=== PATIENT | male | born 1970 | race Caucasian/White ===

== ENCOUNTER 2020-09-08 11:48 | Emergency (ER) | payer OTHER ==
[~2020-09-08] VITALS: Ht 175.3 cm; Wt 68.0 kg
[2020-09-08 12:09] LABS: BASOPHILS ABSOLUTE AUTO 0.05 K/mm3 (0.00-0.23); BASOPHILS PERCENT AUTO 1 % (0-2); EOSINOPHILS ABSOLUTE AUTO 0.14 K/mm3 (0.00-0.68); EOSINOPHILS PERCENT AUTO 2 % (0-6); Hemoglobin 15.6 g/dL (13.5-17.5); IMMATURE GRAN ABSOLUTE AUTO 0.03 K/mm3 (0.00-0.10); IMMATURE GRAN PERCENT AUTO 0 % (0-1); LYMPHOCYTES PERCENT AUTO 32 % (21-46); MONOCYTES ABSOLUTE AUTO 0.49 K/mm3 (0.16-1.47); MONOCYTES PERCENT AUTO 7 % (4-13); Mean Corpuscular HGB 33.4 pg (26.0-34.0); Mean Corpuscular HGB Conc 35.5 g/dL (31.5-36.5); Mean Corpuscular Volume 94 fL (80-100); Mean Platelet Volume 9.8 fL (9.1-12.4); NEUTROPHILS ABSOLUTE AUTO 4.16 K/mm3 (1.96-9.15); NEUTROPHILS PERCENT AUTO 58 % (41-73); Platelet Count 209 K/mm3 (150-400); RDW Coefficient Variation 11.7 % (11.7-14.2); RDW Standard Deviation 40.5 fL (35.1-46.3); Red Blood Cell Count 4.67 M/mm3 (4.30-5.90); White Blood Cell Count 7.17 K/mm3 (4.00-11.30)
[2020-09-08 12:25] LABS: Anion Gap 6 mmol/L (6-16); Blood Urea Nitrogen 7 mg/dL (8-24); Bun/Creatinine Ratio 8.1 (12.0-20.0); CO2, Blood 25 mmol/L (21-32); Calcium, Blood 8.8 mg/dL (8.5-10.1); Chloride, Blood 107 mmol/L (98-108); Creatinine, Blood 0.86 mg/dL (0.60-1.20); Glomerular Filtration Rate >60 (60-); Glucose, Blood 84 mg/dL (70-99); Sodium, Blood 138 mmol/L (136-145); Troponin I <0.015 ng/mL (0.000-0.040)
== END 2020-09-08 15:30 | disposition home or self-care (01) ==
LOC: ER 11:48
PROVIDERS: Student in an Organized Health Care Education/Training Program
DX: R07.9 Chest pain, unspecified (principal); R06.02 Shortness of breath; F17.210 Nicotine dependence, cigarettes, uncomplicated
CPT/HCPCS: 71275; 80048; 84484; 85025; 93005; 93010; 99285-25; Q9967

== ENCOUNTER → 2020-10-04 | Outpatient (CLI) | payer OTHER | LOC: LAB 09:21 → LAB SHORT 09:21 | DX: L03.90 Cellulitis, unspecified (principal) | CPT/HCPCS: 87070; 87075; 87077; 87147; 87186; 87205 ==

== ENCOUNTER 2020-10-31 11:40 | Day surgery (SDC) | payer OTHER ==
[~2020-10-31] VITALS: Ht 175.3 cm; Wt 67.3 kg
[~2020-10-31 11:40] MED LIST: CENTRUM SILVER1 EAC2 PO; Chantix1 MG PO
--- NOTE | 2020-10-31 13:16 | NUR ---
10/31/20 1316 Seth Garza History, Chart, Medications and Allergies reviewed before start of procedure. Patient confirms NPO status and agrees with scheduled surgery. 3-LEAD EKG REVIEWED WITH PHYSICIAN PRIOR TO START OF PROCEDURE. MONITOR INTACT WITH CONTINUOUS PULSE OXIMETRY AND INTERMITTENT BP. PATIENT DETERMINED TO BE ASA APPROPRIATE FOR PROPOFOL SEDATION PRIOR TO START OF PROCEDURE BY DR. CARDENAS.
--- NOTE | 2020-10-31 14:14 | NUR ---
Discharge instructions reviewed with patient. Patient verbalizes understanding. Copy given to patient to take home. Patient States Post-Procedure ride home has been arranged. Discharged via wheelchair to private car for ride home.
== END 2020-10-31 13:45 | disposition home or self-care (01) ==
LOC: ORSCMMR 11:40 → ORD 13:00 → ORSCMMR 13:00
PROVIDERS: Surgery
PROC: 0DJD8ZZ Inspection of Lower Intestinal Tract, Via Natural or Artificial Opening Endoscopic (ICD-10-PCS; principal; 2020-10-31 13:00)
DX: K62.5 Hemorrhage of anus and rectum (principal); K64.8 Other hemorrhoids; F41.8 Other specified anxiety disorders; F17.210 Nicotine dependence, cigarettes, uncomplicated
CPT/HCPCS: J2704; J7120

== ENCOUNTER → 2021-11-12 | Outpatient (CLI) | payer OTHER ==
[2021-11-23 17:07] LABS: COTININE <10.0 ng/mL (.); NICOTINE <10.0 ng/mL (.)
== END | disposition home or self-care (01) ==
LOC: LAB 10:00 → LAB SHORT 10:00
PROVIDERS: Family Medicine
DX: F17.201 Nicotine dependence, unspecified, in remission (principal)
CPT/HCPCS: G0480

== ENCOUNTER → 2021-11-20 | Outpatient (CLI) | payer OTHER ==
[2021-11-30 09:07] LABS: COTININE <10.0 ng/mL (.); NICOTINE <10.0 ng/mL (.)
== END | disposition home or self-care (01) ==
LOC: LAB 09:59 → LAB SHORT 09:59
PROVIDERS: Family Medicine
DX: F17.201 Nicotine dependence, unspecified, in remission (principal)
CPT/HCPCS: G0480

== ENCOUNTER 2022-07-15 03:28 | Day surgery (SDC) | payer OTHER ==
[~2022-07-15 03:28] MED LIST changes: +AMLODIPINE BESY10 MG PO; +ASPI81CH PO; +ATOR80 PO; +Betamethasone V15 GM TP; +METO25ER PO; +NITR.4SL SL; +Prozac40 MG PO; +TICA90TA PO
[2022-07-15 08:00] VITALS: BP 164/86
[2022-07-15 09:45] VITALS: BP 153/90
== END 2022-07-15 10:32 | disposition home or self-care (01) ==
LOC: ATC 03:28
DX: L40.59 Other psoriatic arthropathy (principal); L40.0 Psoriasis vulgaris; I25.10 Atherosclerotic heart disease of native coronary artery without angina pectoris; I10 Essential (primary) hypertension; E78.5 Hyperlipidemia, unspecified; Z79.82 Long term (current) use of aspirin; Z79.899 Other long term (current) drug therapy
CPT/HCPCS: 96375; 96413; 96415; A9270; J1200; J2920; J7050; Q5103

== ENCOUNTER 2022-08-27 01:01 | Day surgery (SDC) | payer OTHER ==
[2022-08-27 07:45] VITALS: BP 151/102
[2022-08-27 08:28] VITALS: BP 150/92
== END 2022-08-27 10:15 | disposition home or self-care (01) ==
LOC: ATC 01:01
DX: L40.59 Other psoriatic arthropathy (principal); I10 Essential (primary) hypertension; E78.5 Hyperlipidemia, unspecified; I25.10 Atherosclerotic heart disease of native coronary artery without angina pectoris; Z79.82 Long term (current) use of aspirin; Z79.899 Other long term (current) drug therapy
CPT/HCPCS: 96375; 96413; 96415; A9270; J1200; J2920; J7050; Q5103

== ENCOUNTER 2024-05-03 06:25 | Day surgery (SDC) | payer OTHER ==
[2024-05-01 07:52] VITALS: BP 141/93
[2024-05-01 07:59] LABS: BASOPHILS ABSOLUTE AUTO 0.05 K/mm3 (0.00-0.23); BASOPHILS PERCENT AUTO 2 % (0-2); EOSINOPHILS ABSOLUTE AUTO 0.08 K/mm3 (0.00-0.68); EOSINOPHILS PERCENT AUTO 2 % (0-6); Hematocrit 42.9 % (37.0-53.0); IMMATURE GRAN ABSOLUTE AUTO 0.01 K/mm3 (0.00-0.10); IMMATURE GRAN PERCENT AUTO 0 % (0-1); LYMPHOCYTES ABSOLUTE AUTO 0.96 K/mm3 (0.84-5.20); LYMPHOCYTES PERCENT AUTO 28 % (21-46); MONOCYTES PERCENT AUTO 15 % (4-13); Mean Corpuscular HGB 31.3 pg (26.0-34.0); Mean Corpuscular Volume 89 fL (80-100); Mean Platelet Volume 9.9 fL (9.1-12.4); NEUTROPHILS PERCENT AUTO 53 % (41-73); Platelet Count 185 K/mm3 (150-400); RDW Coefficient Variation 12.3 % (11.7-14.2); RDW Standard Deviation 39.9 fL (35.1-46.3)
[2024-05-01 08:00] VITALS: BP 140/94
[2024-05-01 08:12] LABS: Calcium, Blood 9.3 mg/dL (8.5-10.1); Potassium, Blood 3.7 mmol/L (3.5-5.5)
[2024-05-01 08:26] LABS: International Normalized Ratio 1.01; Prothrombin Time Results 10.8 Sec (9.7-11.5)
--- NOTE | 2024-05-01 08:31 | NUR ---
PT IV DC'D. CATH INTACT PRESSURE DSG APPLIED. PT CORONARY ANGIOGRAM CANCELLED DUE TO DR MARINELLI BEING SICK. THE OFFICE WILL CONTACT PATIENT TO RESCHEDULE.
[2024-05-03] VITALS (10 sets, daily range): BP systolic 111–151; BP diastolic 79–122
[~2024-05-03] VITALS: Ht 175.3 cm; Wt 75.0 kg
[~2024-05-03 06:25] MED LIST changes: +ALBU90OI INH; +CLOP75 PO; +ESCI10 PO; +Heparin Sodium 1000 Units/ML 10ML MDV ONE; +LEFL20 PO; +NS 0 ML IV ONE; +Nitroglycerin 2 MG/20 ML BTL ONE; +Verapamil HCL 2.5 MG/ML 2ML Injection ONE
[2024-05-03] MEDS ORDERED: Heparin Sodium 1000 Units/ML 10ML MDV ONE (06:38)
[2024-05-03] MEDS ORDERED: NS 250 ML IV ONE (06:38)
[2024-05-03] MEDS ORDERED: NS 1,000 ML IV ONE ×2 (06:38→07:04)
[2024-05-03] MEDS ORDERED: Verapamil HCL 2.5 MG/ML 2ML Injection ONE (06:38)
[2024-05-03] MEDS ORDERED: Nitroglycerin 2 MG/20 ML BTL ONE (06:39)
[2024-05-03] MEDS ORDERED: Midazolam HCl 1MG / ML 2ML Vial ONE (07:03)
[2024-05-03] MEDS ORDERED: FentaNYL Citrate 50 MCG/ML 2 ML Injection ONE (07:03)
--- NOTE | 2024-05-03 10:30 | NUR ---
PT AND S/O VERBALIZES UNDERSTANDING WRITTEN AND VERBAL INSTRUCTIONS. DENIES QUESITONS OR CONCERNS. PT IV DC'D. CATH INTACT. PRESSURE DSG APPLIED. PT DRESSES SELF WITHOUT DIFF. PT TR BAND REMOVED. CLOTH DOT WITH SPLINT AND SLING IN PLACE. NO BLEEDING OR HEMATOMA NOTED. VSS. PT DC TO HOME VIA S/O BY ADELITA
== END 2024-05-03 10:30 | disposition home or self-care (01) ==
LOC: MHTC 06:25 → ORSCMMR 06:26 → MHTC 06:48
PROVIDERS: Student in an Organized Health Care Education/Training Program
DX: I25.118 Atherosclerotic heart disease of native coronary artery with other forms of angina pectoris (principal); E78.5 Hyperlipidemia, unspecified; I10 Essential (primary) hypertension; Z79.899 Other long term (current) drug therapy
CPT/HCPCS: 76937; 80048; 85025; 85610; 93458; 99152; C1769; C1887; C1894; J1644; J2250; J3010; J7030; J7050; Q9967

== ENCOUNTER → 2024-09-13 | Outpatient (CLI) | payer OTHER ==
[~2024-09-13] MED LIST changes: -Heparin Sodium 1000 Units/ML 10ML MDV ONE; -NS 0 ML IV ONE; -Nitroglycerin 2 MG/20 ML BTL ONE; -Verapamil HCL 2.5 MG/ML 2ML Injection ONE
[2024-09-13 18:16] LABS: Ferritin, Serum 58.0 ng/mL (26-388); Total Iron Binding Capacity 338.0 ug/dL (250-450)
== END | disposition home or self-care (01) ==
LOC: LAB 13:25 → LAB SHORT 13:25
PROVIDERS: Internal Medicine Hematology & Oncology
DX: E61.1 Iron deficiency (principal)
CPT/HCPCS: 82728; 83540; 83550

== ENCOUNTER 2024-12-29 09:59 | Emergency (ER) | payer OTHER ==
[~2024-12-29] VITALS: Ht 175.3 cm; Wt 74.4 kg
[2024-12-29] MEDS ORDERED: ABAT250V INH (10:27)
[2024-12-29 10:42] LABS: BASOPHILS ABSOLUTE AUTO 0.06 K/mm3 (0.00-0.23); BASOPHILS PERCENT AUTO 1 % (0-2); EOSINOPHILS ABSOLUTE AUTO 0.09 K/mm3 (0.00-0.68); EOSINOPHILS PERCENT AUTO 2 % (0-6); Hematocrit 41.8 % (37.0-53.0); Hemoglobin 14.1 g/dL (13.5-17.5); IMMATURE GRAN ABSOLUTE AUTO 0.01 K/mm3 (0.00-0.10); IMMATURE GRAN PERCENT AUTO 0 % (0-1); LYMPHOCYTES ABSOLUTE AUTO 0.85 K/mm3 (0.84-5.20); LYMPHOCYTES PERCENT AUTO 16 % (21-46); MONOCYTES ABSOLUTE AUTO 0.35 K/mm3 (0.16-1.47); MONOCYTES PERCENT AUTO 7 % (4-13); Mean Corpuscular HGB Conc 33.7 g/dL (31.5-36.5); Mean Corpuscular Volume 92 fL (80-100); NEUTROPHILS ABSOLUTE AUTO 3.86 K/mm3 (1.96-9.15); NEUTROPHILS PERCENT AUTO 74 % (41-73); NRBC ABSOLUTE 0.00 K/mm3 (0.00-0.02); NRBC Auto 0.0 /100 WBC (0.0-0.2); Platelet Count 178 K/mm3 (150-400); RDW Coefficient Variation 12.2 % (11.7-14.2); RDW Standard Deviation 41.9 fL (35.1-46.3)
[2024-12-29 11:02] LABS: Alanine Aminotransfer (ALT/SGP 27.0 U/L (12-78); Albumin, Blood 4.0 g/dL (3.4-5.0); Albumin/Globulin Ratio 1.3 (0.8-1.8); Anion Gap 13.0 mmol/L (3-11); Aspartate Aminotrans (AST/SGOT 20.0 U/L (12-37); Bilirubin, Total 0.4 mg/dL (0.1-1.0); Blood Urea Nitrogen 11.0 mg/dL (8-24); CO2, Blood 23.0 mmol/L (21-32); Calcium, Blood 9.1 mg/dL (8.5-10.1); Chloride, Blood 105.0 mmol/L (98-108); Creatinine, Blood 0.9 mg/dL (0.60-1.20); Globulin, Blood 3.1 g/dL (2.2-4.0); Glucose, Blood 162.0 mg/dL (70-99); Potassium, Blood 3.8 mmol/L (3.5-5.5); Sodium, Blood 137.0 mmol/L (136-145); Total Protein, Blood 7.1 g/dL (6.4-8.2)
[2024-12-29 12:07] VITALS: BP 129/99
== END 2024-12-29 12:09 | disposition home or self-care (01) ==
LOC: ER 09:59
PROVIDERS: Student in an Organized Health Care Education/Training Program
DX: K64.4 Residual hemorrhoidal skin tags (principal); Z79.899 Other long term (current) drug therapy
CPT/HCPCS: 80053; 82272; 85025; 99283